=== PATIENT | female | born 1960 | race Caucasian/White ===

== ENCOUNTER → 2017-03-05 | Outpatient (CLI) | payer BC, OTHER ==
[~2017-03-05] MED LIST: /AUGM875TA; ALTACE5 PO; PRIN20TA3; [UNRECOGNIZED DRUG - OTHER] PO; [UNRECOGNIZED DRUG - OTHER] PO
--- NOTE | 2017-03-05 10:47 | REP ---
BILATERAL MAMMOGRAM WITH DIAGNOSTIC MAMMOGRAM RIGHT BREAST AND RIGHT BREAST ULTRASOUND: Family history of breast cancer in mother, two maternal aunts and maternal grandmother. Bilateral mammography performed in the MLO and CC projections. Comparison made with multiple prior exams including the most recent of 02/28/2016. The patient reports pain in the right breast with a lump in the right axillary region. The area is marked on the skin with a triangular marker. The parenchymal pattern is unchanged. There is no new mass or clustered microcalcifications. Real-time sonographic evaluation of the right axillary region at the site of the reported lump shows a lymph node measuring 3.1 x 0.9 x 2.3 cm. No other cystic or solid nodule is seen. IMPRESSION: ACR 2 benign. No suspicious mass or clustered microcalcifications. At the site of the reported lump in the right axillary region is a normal sized lymph node. Clinical correlation and followup is recommended. Recommend followup mammogram in one year. BI-RADS/ACR category 2 mammogram. Benign finding(s). Routine annual screening mammography (for women over age 40). This mammogram was interpreted with the aid of an FDA-approved computer-aided detection system. A. Negative x-ray reports should not delay biopsy if a dominant or clinically suspicious mass is present. B. Four to eight percent of cancers are not identified by x-ray. C. Adenosis and dense breasts may obscure an underlying neoplasm. The patient states she/he had a clinical breast exam in October 2016. The patient letter being requested is M2. Signed by Chuck Reza MD 03/05/2017 05:17 P
== END ==
LOC: M RAD 09:03
PROVIDERS: ATTEND Nurse Practitioner Women's Health
DX: N64.4 Mastodynia (principal); N63 Unspecified lump in breast
CPT/HCPCS: 76642; G0204

== ENCOUNTER → 2018-06-16 | Outpatient (CLI) | payer BC, OTHER | LOC: M RAD 09:51 | DX: Z12.31 Encounter for screening mammogram for malignant neoplasm of breast (principal); Z80.3 Family history of malignant neoplasm of breast | CPT/HCPCS: 77067 ==

== ENCOUNTER → 2019-03-03 | Outpatient (CLI) | payer BC, OTHER ==
--- NOTE | 2019-03-03 12:46 | REP ---
CERVICAL SPINE, SEVEN VIEWS: HISTORY: Neck pain. The cervical spine is visualized from C1 to the C6-7 level in the lateral radiographs. There is no acute fracture or subluxation. The C3-4 through C6-7 intervertebral discs are decreased in height consistent with disc degeneration. Osteophytes are present on C3 through C7. There is narrowing of the right C4 through C6 and left C3 through C5 neural foramina secondary to uncinate process hypertrophy. IMPRESSION: Degenerative change as described above. Electronically Signed by Gonzalo Quintana MD 03/03/2019 12:49 P
--- NOTE | 2019-03-03 12:49 | REP ---
LUMBAR SPINE FIVE VIEWS: HISTORY: Back pain. There is no acute fracture or subluxation. The lumbar intervertebral discs are decreased in height. Vacuum phenomenon is present at the L5-S1 level. These findings are consistent with disc degeneration. Osteophytes are present throughout the lumbar spine. There is narrowing of the L3-4 through L5-S1 facet joints. There is minimal scoliosis convex to the right. IMPRESSION: Degenerative change as described above. Electronically Signed by Gonzalo Quintana MD 03/03/2019 01:06 P
== END ==
LOC: M WUC 12:01
PROVIDERS: ATTEND Internal Medicine
DX: M50.31 Other cervical disc degeneration, high cervical region (principal); M50.321 Other cervical disc degeneration at C4-C5 level; M50.322 Other cervical disc degeneration at C5-C6 level; M25.78 Osteophyte, vertebrae

== ENCOUNTER → 2019-07-11 | Outpatient (CLI) | payer BC, OTHER ==
--- NOTE | 2019-07-11 11:22 | REPMRS ---
Patient History The patient states she had a clinical breast exam in 2018. Patient is postmenopausal and has history of other cancer at age 40. Family history of breast cancer at age 50 or over in mother, breast cancer at age 50 or over in maternal grandmother, breast cancer at age 50 or over in maternal aunt, breast cancer at age 50 or over in maternal aunt. Taking estrogen for 10 years. 3D TOMOSYNTHESIS WAS PERFORMED. The [facility] lifetime risk for breast cancer is 16.2%. Digital Mammo Screening Bilat: July 11, 2019 - Exam #: [id number] Bilateral CC and MLO view(s) were taken. Technologist: Keysha Son, Technologist Prior study comparison: June 16, 2018, bilateral digital mammo screening bilat performed at [facility]. March 05, 2017, digital mammo diagnostic bilateral performed at [facility]. FINDINGS: There are scattered fibroglandular densities. There has been no change in the appearance of the mammogram from the prior studies. There is a mild amount of residual fibroglandular tissue which is fairly symmetric. There is no interval development of dominant mass, architectural distortion, or clustered microcalcification suggestive of malignancy. Assessment: BI-RADS/ACR category 1 mammogram. Negative Mammogram. Recommendation Routine screening mammogram in 1 year (for women over age 40). This mammogram was interpreted with the aid of an FDA-approved computer-aided dectection system. Electronically Signed By: Chuck Reza MD 07/11/19 [id number]
== END ==
LOC: M RAD 10:32
PROVIDERS: ATTEND Nurse Practitioner Women's Health
DX: Z12.31 Encounter for screening mammogram for malignant neoplasm of breast (principal)

== ENCOUNTER → 2020-08-08 | Outpatient (CLI) | payer BC ==
--- NOTE | 2020-08-08 09:51 | REPMRS ---
Patient History The patient states she had a clinical breast exam in 2019. Family history of breast cancer at age 50 or over in mother, breast cancer at age 50 or over in maternal grandmother, breast cancer at age 50 or over in maternal aunt, breast cancer at age 50 or over in maternal aunt. Taking estrogen for 10 years. 3D TOMOSYNTHESIS WAS PERFORMED. The [facility] lifetime risk for breast cancer is 15.8%. VOLPARA DENSITY A. Digital Woman Screen Mammo: August 08, 2020 - Exam #: [id number] Bilateral CC and MLO view(s) were taken. Technologist: Riya Wu, Technologist Prior study comparison: July 11, 2019, bilateral digital mammo screening bilat, performed at [facility]. June 16, 2018, bilateral digital mammo screening bilat, performed at [facility]. FINDINGS: There are scattered fibroglandular densities. There has been no change in the appearance of the mammogram from the prior studies. There is a mild amount of residual fibroglandular tissue which is fairly symmetric. There is no interval development of dominant mass, architectural distortion, or clustered microcalcification suggestive of malignancy. Assessment: BI-RADS/ACR category 1 mammogram. Negative Mammogram. Recommendation Routine screening mammogram in 1 year (for women over age 40). This mammogram was interpreted with the aid of an FDA-approved computer-aided dectection system. Electronically Signed By: Chuck Reza MD 08/08/20 [id number]
== END ==
LOC: M WHC 08:27
PROVIDERS: ATTEND Obstetrics & Gynecology
DX: Z12.31 Encounter for screening mammogram for malignant neoplasm of breast (principal); Z80.3 Family history of malignant neoplasm of breast; Z79.899 Other long term (current) drug therapy

== ENCOUNTER → 2021-01-30 | Outpatient (CLI) | payer BC, OTHER | LOC: M LABSMTC 09:38 | PROVIDERS: ATTEND Surgery | DX: Z11.52 Encounter for screening for COVID-19 (principal) ==

== ENCOUNTER → 2022-03-05 | Outpatient (CLI) | payer BC, OTHER | LOC: M WHC 07:14 | PROVIDERS: ATTEND Obstetrics & Gynecology | DX: Z12.31 Encounter for screening mammogram for malignant neoplasm of breast (principal) ==

== ENCOUNTER → 2022-03-16 | Outpatient (CLI) | payer BC, OTHER | LOC: M WHC 10:26 | PROVIDERS: ATTEND Obstetrics & Gynecology | DX: R92.1 Mammographic calcification found on diagnostic imaging of breast (principal) | CPT/HCPCS: 77065; G0279 ==

== ENCOUNTER → 2023-03-17 | Outpatient (REF) | payer BC, OTHER | LOC: M LAB REF 18:54 | PROVIDERS: ATTEND Physician Assistant | DX: R30.0 Dysuria (principal) ==

== ENCOUNTER → 2023-03-26 | Outpatient (REF) | payer OTHER, BC | LOC: M LAB REF 18:59 | PROVIDERS: ATTEND Physician Assistant | DX: R30.0 Dysuria (principal) ==

== ENCOUNTER → 2023-12-29 | Outpatient (CLI) | payer BC | LOC: M WHC 14:17 | PROVIDERS: ATTEND Internal Medicine | DX: Z12.31 Encounter for screening mammogram for malignant neoplasm of breast (principal); M81.0 Age-related osteoporosis without current pathological fracture ==

== ENCOUNTER → 2024-07-28 | Outpatient (REF) | payer BC, OTHER ==
[2024-07-28 17:19] LABS: OSMOLALITY URINE 153 MOSM/KG (50-1400)
[2024-07-28 17:26] LABS: SODIUM,RANDOM URINE 46 MMOL/L
== END ==
LOC: M LAB REF 16:24
PROVIDERS: ATTEND Internal Medicine
DX: E87.1 Hypo-osmolality and hyponatremia (principal)

== ENCOUNTER → 2024-08-27 | Outpatient (REF) | payer OTHER, BC | LOC: M LAB REF 19:12 | PROVIDERS: ATTEND Registered Nurse | DX: N39.0 Urinary tract infection, site not specified (principal) ==

== ENCOUNTER → 2025-01-01 | Outpatient (CLI) | payer BC | LOC: M WHC 08:54 | PROVIDERS: ATTEND Internal Medicine | DX: Z12.31 Encounter for screening mammogram for malignant neoplasm of breast (principal) ==